=== PATIENT | male | born 1945 | race Caucasian/White ===

== ENCOUNTER 2018-07-03 13:55 | Observation (INO) ==
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
[2018-07-03 15:13] LABS: Baso # (Auto) 0.1 th/mm3 (0.0-0.2); Baso % (Auto) 0.6 % (0.0-2.0); Eos # (Auto) 0.1 th/mm3 (0.0-0.4); Eos % (Auto) 0.6 % (0.0-4.0); Hematocrit 41.7 % (39.0-51.0); Lymph # (Auto) 1.2 th/mm3 (1.0-4.8); Lymph % (Auto) 10.6 % (9.0-44.0); Mean Corpuscular Hemoglobin 32.5 pg (27.0-34.0); Mean Platelet Volume 8.4 fL (7.0-11.0); Mono # (Auto) 0.6 th/mm3 (0.0-0.9); Mono % (Auto) 5.1 % (0.0-8.0); Neut # (Auto) 9.6 th/mm3 (1.8-7.7); Neut % (Auto) 83.1 % (16.0-70.0); Platelet Count 208 th/mm3 (150-450); Red Blood Count 4.63 mil/mm3 (4.50-5.90); Red Cell Distribution Width 13.2 % (11.6-17.2); White Blood Count 11.6 th/mm3 (4.0-11.0)
[2018-07-03 15:19] LABS: Mean Corpuscular HGB Conc 36.1 % (32.0-36.0)
[2018-07-03] MEDS ORDERED: QUEtiapine 25 MG Tablet PO ONE (15:19)
[2018-07-03] MEDS ORDERED: OXcarbazepine 150 MG Tablet PO ONE (15:19)
[2018-07-03 15:26] LABS: Alanine Aminotransferase 27 U/L (12-78); Albumin 3.9 g/dL (3.4-5.0); Anion Gap 9 meq/L (5-15); Aspartate Aminotransferase 26 U/L (15-37); Blood Urea Nitrogen 11 mg/dL (7-18); Calcium 8.4 mg/dL (8.5-10.1); Carbon Dioxide 28.5 meq/L (21.0-32.0); Chloride 103 meq/L (98-107); Glomerular Filtration Rate 62 mL/min (>89); Glucose,Random 83 mg/dL (74-106); Magnesium 1.5 mg/dL (1.5-2.5); Sodium 140 meq/L (136-145)
[2018-07-03 15:36] LABS: Alkaline Phosphatase 78 U/L (45-117); Total Protein 7.4 g/dL (6.4-8.2)
[2018-07-03 15:51] LABS: Platelet Estimate Normal (Normal); Platelet Morphology Normal (Normal)
--- NOTE | 2018-07-03 16:27 | CT ---
EXAM DATE: 07/03/2018 4:21 PM EST AGE/SEX: 73 years / Male INDICATIONS: Altered mental status. CLINICAL DATA: This is the patient's initial encounter. Patient reports that signs and symptoms have been present for 1 day and indicates a pain score of 0/10. MEDICAL/SURGICAL HISTORY: Dementia. Hypertension. Diabetes. None. RADIATION DOSE: 56.35 CTDI (mGy) COMPARISON: No prior exams available for comparison. TECHNIQUE: CT of the head without contrast. Using automated exposure control and adjustment of the mA and/or kV according to patient size, radiation dose was kept as low as reasonably achievable to ob tain optimal diagnostic quality images. DICOM format image data is available electronically for revi ew and comparison. FINDINGS: Cerebrum: The ventricles are mildly prominent for age. There is bilateral cortical atrophy. No evide nce of midline shift, mass lesion, hemorrhage or acute infarction. No extraaxial fluid collections a re seen. Posterior Fossa: The cerebellum and brainstem are intact. The 4th ventricle is midline. The cerebe llopontine angle is unremarkable. Extracranial: The visualized portion of the orbits is intact. Skull: The calvaria is intact. No evidence of skull fracture. CONCLUSION: 1. No focal or acute intracranial hemorrhage. 2. Bilateral cortical atrophy characteristic for patient's age. . Electronically signed by: Hakeem Hanson MD 07/03/2018 4:25 PM EST
[2018-07-03 17:03] LABS: Bilirubin,Urine Negative (Negative); Clarity,Urine Clear (Clear); Color,Urine Yellow (Yellw/Straw); Glucose,Urine (UA) Negative (Negative); Leukocyte Esterase,Urine Negative (Negative); Nitrite,Urine Negative (Negative)
[2018-07-03 17:09] LABS: Amphetamine Screen,Urine Neg (Neg); Barbiturate Screen,Urine Neg (Neg); Cannabinoid Screen,Urine Neg (Neg); Cocaine Screen,Urine Neg (Neg)
[2018-07-03 17:15] LABS: Opiate Screen,Urine Neg (Neg)
[2018-07-04] MEDS ORDERED: Lisinopril 5 MG Tablet PO ONE (00:37)
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
[2018-07-04] MEDS ORDERED: QUEtiapine 25 MG Tablet PO ONE (17:43)
[2018-07-04] MEDS ORDERED: Lisinopril 10 MG Tablet PO ONE (17:43)
[2018-07-04] MEDS ORDERED: Acetaminophen 325 MG Tablet PO PRN (18:00)
[2018-07-04] MEDS ORDERED: Dextrose 50% in Water 50 ML Vial IV.PUSH PRN (18:02)
[2018-07-04] MEDS ORDERED: Haloperidol Inj 5 MG/ML Ampul IV.PUSH ONE (18:14)
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
[2018-07-04 22:09] VITALS: RESP 20
[2018-07-04] MEDS: OXcarbazepine 150 MG Tablet PO SCH (23:55)
[2018-07-04] MEDS: Insulin NovoLOG Aspart Correctional Sugar Inj SQ SCH (23:57)
[2018-07-04] MEDS: hydrALAZINE 25 MG Tablet PO SCH (23:59)
[2018-07-05 07:31] VITALS: O2SAT 95
[2018-07-05 07:42] LABS: Baso % (Auto) 0.6 % (0.0-2.0); Eos # (Auto) 0.2 th/mm3 (0.0-0.4); Eos % (Auto) 3.1 % (0.0-4.0); Hematocrit 41.3 % (39.0-51.0); Hemoglobin 14.2 gm/dL (13.0-17.0); Lymph # (Auto) 1.3 th/mm3 (1.0-4.8); Lymph % (Auto) 17.7 % (9.0-44.0); Mean Corpuscular HGB Conc 34.4 % (32.0-36.0); Mean Corpuscular Hemoglobin 31.5 pg (27.0-34.0); Mean Corpuscular Volume 91.7 fL (80.0-100.0); Mean Platelet Volume 8.8 fL (7.0-11.0); Mono # (Auto) 0.7 th/mm3 (0.0-0.9); Neut # (Auto) 4.9 th/mm3 (1.8-7.7); Neut % (Auto) 68.6 % (16.0-70.0); Platelet Count 195 th/mm3 (150-450); Red Blood Count 4.51 mil/mm3 (4.50-5.90); Red Cell Distribution Width 13.7 % (11.6-17.2); White Blood Count 7.2 th/mm3 (4.0-11.0)
[2018-07-05 08:00] LABS: Albumin 3.4 g/dL (3.4-5.0); Anion Gap 9 meq/L (5-15); Blood Urea Nitrogen 18 mg/dL (7-18); Calcium 8.6 mg/dL (8.5-10.1); Carbon Dioxide 26.2 meq/L (21.0-32.0); Chloride 104 meq/L (98-107); Glomerular Filtration Rate 56 mL/min (>89); Glucose,Random 93 mg/dL (74-106); Potassium 3.5 meq/L (3.5-5.1); Sodium 139 meq/L (136-145)
[2018-07-05 08:01] LABS: Alanine Aminotransferase 22 U/L (12-78); Aspartate Aminotransferase 30 U/L (15-37)
[2018-07-05 08:03] LABS: Alkaline Phosphatase 64 U/L (45-117); Total Protein 6.7 g/dL (6.4-8.2)
[2018-07-05] MEDS ORDERED: QUEtiapine 25 MG Tablet PO SCH (09:00)
[2018-07-05] MEDS ORDERED: Lisinopril 5 MG Tablet PO SCH (09:00)
[2018-07-05] MEDS: Insulin NovoLOG Aspart Correctional Sugar Inj SQ SCH ×2 (09:05→12:53)
[2018-07-05] MEDS: hydrALAZINE 25 MG Tablet PO SCH ×2 (09:10→12:53)
[2018-07-05] MEDS: OXcarbazepine 150 MG Tablet PO SCH (09:16)
[2018-07-05] MEDS ORDERED: Sod Chloride 0.9% Inj 1,000 ML IV.SIG SCH (10:00)
--- NOTE | 2018-07-05 11:01 | P.PN ---
Subjective Interval history: Nursing denies any acute changes overnight. Patient was compliant with taking his medications and eating well. I go into the room the patient is asking me to get this "dog away from me." I asked him where the dog is he says it was just here. Sitter is present in the room. When asked him where he he is in terms of orientation, he says he does not know when he asks me where we are. Physical Exam Vital signs: Vital Signs 07/04/18 14:32 07/04/18 19:19 07/04/18 22:00 Temperature Pulse Rate 78 90 Respiratory Rate 18 14 14 Blood Pressure 197/100 H 154/83 H Pulse Oximetry 98 07/04/18 22:07 07/05/18 00:00 07/05/18 04:00 Temperature 97.5 F L 97.7 F 97.5 F L Pulse Rate 78 62 65 Respiratory Rate 20 20 20 Blood Pressure 133/63 144/53 H 118/58 L Pulse Oximetry 95 94 L 94 L 07/05/18 07:29 Temperature 98.5 F Pulse Rate 63 Respiratory Rate 20 Blood Pressure 124/60 Pulse Oximetry 95 Narrative: Clear lungs bilaterally, unlabored breathing heart sounds regular rhythm, no murmurs Awake, alert, slightly pressured speech Abdomen soft, nontender, nondistended Awake and alert, very disoriented Is very tangential in his thoughts Results - Labs CBC & Chem 7: 07/05/18 06:11 07/05/18 06:11 Laboratory Results - last 24 hr 07/04/18 07/05/18 07/05/18 23:17 06:11 06:11 WBC 7.2 RBC 4.51 Hgb 14.2 Hct 41.3 MCV 91.7 MCH 31.5 MCHC 34.4 RDW 13.7 Plt Count 195 MPV 8.8 Neut % (Auto) 68.6 Lymph % (Auto) 17.7 Mccreary % (Auto) 10.0 H Eos % (Auto) 3.1 Baso % (Auto) 0.6 Neut # (Auto) 4.9 Lymph # (Auto) 1.3 Mccreary # (Auto) 0.7 Eos # (Auto) 0.2 Baso # (Auto) 0.0 WBC Differential . Differential Comment Auto diff final Sodium 139 Potassium 3.5 Chloride 104 Carbon Dioxide 26.2 Anion Gap 9 BUN 18 Creatinine 1.26 Estimated GFR 56 L POC Glucose 207 H Random Glucose 93 Calcium 8.6 Total Bilirubin 0.7 AST 30 ALT 22 Alkaline Phosphatase 64 Total Protein 6.7 D Albumin 3.4 Vitamin B12 07/05/18 07/05/18 06:11 07:35 WBC RBC Hgb Hct MCV MCH MCHC RDW Plt Count MPV Neut % (Auto) Lymph % (Auto) Mccreary % (Auto) Eos % (Auto) Baso % (Auto) Neut # (Auto) Lymph # (Auto) Mccreary # (Auto) Eos # (Auto) Baso # (Auto) WBC Differential Differential Comment Sodium Potassium Chloride Carbon Dioxide Anion Gap BUN Creatinine Estimated GFR POC Glucose 110 Random Glucose Calcium Total Bilirubin AST ALT Alkaline Phosphatase Total Protein Albumin Vitamin B12 350 Assessment and Plan - Plan 73-year-old man with Dementia with aggressive behavior Acute mood disorder Head CT noted and reviewed without any abnormality UA unremarkable Blood work so far unremarkable, TSH within normal limits B12 pending, is actively hallucinating, will discharge to inpatient psychiatry Diabetes type 2 Hold oral anti-hyperglycemic agents nsulin sliding scale with fingerstick blood glucose monitoring Benign labile hypertension Will double lisinopril dose Acute kidney injury Mild in extent, give one-time IV bolus, recheck BMP in a.m. or follow-up outpatient closely if cleared for discharge by psychiatry Dementia home medications Patient is medically stable for dc to inpatient psychiatric facility. Just needs to have his BMP repeated in 1-2 days.
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
[2018-07-05 12:03] VITALS: PULSE 82; TEMP 98.4
[2018-07-05 13:21] VITALS: BP 134/60
== END 2018-07-05 13:42 ==
LOC: NEDA 13:55 → NEPE 13:55 → NEPGCP 07-04 22:04
PROVIDERS: ADMIT Hospitalist; ATTEND Hospitalist
DX: Z79.899 Other long term (current) drug therapy; F03.91 Unspecified dementia, unspecified severity, with behavioral disturbance; R45.6 Violent behavior; E11.9 Type 2 diabetes mellitus without complications; R41.0 Disorientation, unspecified; E78.5 Hyperlipidemia, unspecified; Z79.84 Long term (current) use of oral hypoglycemic drugs; I10 Essential (primary) hypertension

== ENCOUNTER 2018-07-05 13:17 | Inpatient (IN) ==
[2018-07-05] MEDS ORDERED: Bisacodyl 10 MG Supp RECTAL PRN (14:13)
[2018-07-05] MEDS ORDERED: Aluminum/Magnesium/Simethacone Susp 30 ML UDC PO PRN (14:13)
[2018-07-05] MEDS ORDERED: Non-Formulary Drug (Linagliptin [Tradjenta] 5 MG) PO SCH (14:15)
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
[2018-07-05] MEDS ORDERED: Dextrose 50% in Water 50 ML Vial IV.PUSH PRN (15:33)
[2018-07-05] MEDS: Insulin NovoLOG Aspart Correctional Sugar Inj SQ SCH ×2 (16:13→20:43)
--- NOTE | 2018-07-05 16:35 | P.CON ---
History of Present Illness Primary Care Provider: UNKNOWN Chief Complaint: High blood pressure History of Present Illness: The patient is a very pleasantly confused 73-year-old male with past medical history of hypertension, diabetes, dementia. Patient was noted with worsening dementia with aggressive behavior and is admitted to inpatient psych unit for further evaluation and management. The patient is in the chair at this time and he appears in not acute distress, he is calm at this time and pleasantly confused. Says he wants to go home he says he lives in [place]. He denies having chest pain or shortness of breath. No nausea vomiting or diarrhea constipation. He is ambulating without any problems. No lightheadedness. No palpitations. No abdominal pain. No urinary complaints. Patient states he wants to go home. Review of Systems All other systems reviewed negative except as stated in HPI, other (Limited due to patient mental status/psychiatric illness) PMFSH - History History Provided By: Patient, Family Member, Medical Record - Medical History Medical History: Medical History (Last Reviewed 07/04/18 @ 14:28 by ADENIKE Haynes) Dementia Diabetes Hypertension - Surgical History Surgical History: Surgical History (Last Reviewed 07/04/18 @ 14:28 by ADENIKE Haynes) History of carpal tunnel release - Family History Family History: Family History (Last Updated 07/04/18 @ 18:09 by Balaji Lindsay MD) Other Diabetes - Tobacco History Second Hand Smoke Exposure: No Tobacco Use In Past 30 Days: No Smoking Status: Cognitive impairment Tobacco Type: Cigarettes - Alcohol History How Often Do You Have a Drink Containing Alcohol: Unable to Obtain - Substance Use History Substance History: No History of Abuse, Unable to Obtain Medications and Allergies Active Medications: Active Medications Al Hydrox/Mg Hydrox/Simethicone (Mag-Al Plus Susp Liq) 30 ml PO Q6H PRN PRN Reason: DYSPEPSIA Al Hydroxide/Mg Hydroxide (Milk Of Magnesia Liq) 30 ml PO Q12H PRN PRN Reason: Mild Constipation Bisacodyl (Dulcolax Supp) 10 mg RECTAL DAILY PRN PRN Reason: SEVERE CONSITIPATION Dextrose (D50w Vial) 50 ml IV.PUSH UNSCH PRN PRN Reason: PER HYPOGLYCEMIA PROTOCOL Donepezil HCl (Aricept) 10 mg PO DAILY [facility] Last Admin: 07/05/18 14:56 Dose: Not Given Glipizide (Glucotrol) 2.5 mg PO DAILY [facility] Glucagon (Glucagon Inj) 1 mg OTHER PRN PRN PRN Reason: for Hypoglycemia Protocol Hydralazine HCl (Apresoline) 10 mg PO QID PRN PRN Reason: BP> 160/90 Insulin Aspart (Novolog Insulin Correctional Sugar Inj) 0 unit SQ ACHS [facility]; Protocol Last Admin: 07/05/18 16:13 Dose: 2 unit Lactulose (Lactulose Liq) 30 ml PO DAILY PRN PRN Reason: SEVERE CONSITIPATION Lisinopril (Prinivil) 10 mg PO DAILY [facility] Memantine (Namenda) 10 mg PO BID [facility] Miscellaneous (Pill Splitter) 1 each OTHER ONCE ONE Stop: 07/06/18 08:01 Non-Formulary Medication (Linagliptin [Tradjenta]) 5 mg PO QAM [facility] Oxcarbazepine (Trileptal) 150 mg PO BID [facility] Pravastatin Sodium (Pravachol) 20 mg PO DAILY [facility] Quetiapine Fumarate (Seroquel) 25 mg PO BID [facility] Senna/Docusate Sodium (Sara-Colace) 1 tab PO BID [facility] Sennosides (Senokot) 17.2 mg PO Q12H PRN PRN Reason: Moderate Constipation Allergies Allergy/AdvReac Type Severity Reaction Status Date / Time No Known Allergies Allergy Verified 07/03/18 14:41 Home Medications Medication Instructions Recorded Confirmed Type donepezil 10 mg PO DAILY 07/03/18 07/05/18 History glipizide 2.5 mg PO DAILY 07/03/18 07/05/18 History linagliptin [Tradjenta] 5 mg PO QAM 07/03/18 07/05/18 History lovastatin 20 mg PO DAILY 07/03/18 07/05/18 History memantine 10 mg PO BID 07/03/18 07/05/18 History oxcarbazepine 150 mg PO BID 07/03/18 07/05/18 History quetiapine [Seroquel] 25 mg PO BID 07/03/18 07/05/18 History Physical Exam Vital signs: Vital Signs 07/05/18 14:09 Temperature 97.6 F Pulse Rate 77 Respiratory Rate 20 Blood Pressure 146/67 H Pulse Oximetry 98 Intake & Output 07/04/18 07/05/18 07/05/18 18:59 06:59 18:59 Weight 83.574 kg Other: Weight On Admission 83.574 kg Narrative: GENERAL: Pleasantly confused 73-year-old male, obese, appears in not acute distress at this time, able to ambulate without any problems. SKIN: Warm and dry. HEAD: Atraumatic. Normocephalic. EYES: Pupils equal and round. No scleral icterus. No injection or drainage. ENT: No nasal bleeding or discharge. Mucous membranes pink and moist. NECK: Trachea midline. No JVD. CARDIOVASCULAR: Regular rate and rhythm. RESPIRATORY: No accessory muscle use. Clear to auscultation. Breath sounds equal bilaterally. GASTROINTESTINAL: Abdomen soft, obese, non-tender, nondistended. MUSCULOSKELETAL: Extremities without clubbing, cyanosis, or edema. No obvious deformities. NEUROLOGICAL: Awake and alert. No obvious cranial nerve deficits. Motor grossly within normal limits. Ambulates without any problems follow commands. Normal speech. PSYCHIATRIC: Insight and judgment very poor. Assessment and Plan - Plan 73-year-old male with past medical history of hypertension, diabetes, dementia Worsening dementia with aggressive behavior. Continue management per psychiatry team Hypertension. Noted labile due to patient aggressiveness. Continue home medications. Blood pressure is improving. Add hydralazine 10 mg p.o. as needed if blood pressure more than 160/90 Diabetes mellitus. Continue home medications. Monitor blood sugar with Accu- Cheks. DVT prophylaxis ambulation Thank you for this consultation. Hospitalist will sign off this patient appear medically stable. Reconsult as needed
[2018-07-05] MEDS: QUEtiapine 25 MG Tablet PO SCH (20:43)
[2018-07-05] MEDS: OXcarbazepine 150 MG Tablet PO SCH (20:43)
[2018-07-05] MEDS ORDERED: Senna/Docusate Sodium 8.6/50 MG Tablet PO SCH (21:00)
[2018-07-06 07:15] LABS: Calcium 8.8 mg/dL (8.5-10.1); Carbon Dioxide 28.5 meq/L (21.0-32.0); Potassium 3.6 meq/L (3.5-5.1)
[2018-07-06 07:18] LABS: Chol/HDL Ratio 2.46 Ratio; HDL Cholesterol 66.9 mg/dL (40.0-60.0)
[2018-07-06] MEDS ORDERED: Aluminum/Magnesium/Simethacone Susp 30 ML UDC PO PRN (07:51)
--- NOTE | 2018-07-06 08:03 | P.CONPSY ---
Provisional Diagnosis Admission Date: July 05, 2018 13:45 [place] I.: Unspecified psychosis History of Present Illness Service: Psychiatry Consult date: 07/06/18 Requesting Physician: Santy Skelton Reason for Consult: Second opinion petition supporting Williamson act Primary Care Provider: UNKNOWN Chief Complaint: High blood pressure History of Present Illness: Patient is a 73-year-old white male admitted to Dr. Krueger service under the Williamson act his H&P reviewed and agreed with I have also completed the initial psychiatric admission orders template and reviewed the med reconciliation. Dr. Krueger has done first opinion petition supporting Williamson act. I agree patient meets criteria for involuntary psychiatric hospitalization the Williamson act thus I will cosign second opinion petition supporting Williamson act. Patient was seen by me in the cortes with floor staff he is not alert significantly diffusely confused in all 4 spheres stockily built white male appears his stated age I also agree with Dr. Krueger is requesting a healthcare surrogate and guardian advocate. I have also ordered hospitalist consultation with this gentleman. Review of Systems unobtainable due to mental condition PMFSH - History History Provided By: Patient, Medical Record - Medical History Medical History: Medical History (Last Reviewed 07/06/18 @ 08:00 by Vipin Hernandez MD) Dementia Diabetes Hypertension - Surgical History Surgical History: Surgical History (Last Reviewed 07/06/18 @ 08:00 by Vipin Hernandez MD) History of carpal tunnel release - Family History Family History: Family History (Last Reviewed 07/06/18 @ 08:00 by Vipin Hernandez MD) Other Diabetes - Social History I have reviewed the patient's Social History: Yes - Tobacco History Second Hand Smoke Exposure: No Tobacco Use In Past 30 Days: No Smoking Status: Cognitive impairment Tobacco Type: Cigarettes - Alcohol History How Often Do You Have a Drink Containing Alcohol: Unable to Obtain - Substance Use History Substance History: No History of Abuse, Unable to Obtain Medications and Allergies Active Medications: Active Medications Al Hydrox/Mg Hydrox/Simethicone (Mag-Al Plus Susp Liq) 30 ml PO Q6H PRN PRN Reason: DYSPEPSIA Al Hydroxide/Mg Hydroxide (Milk Of Magnesia Liq) 30 ml PO Q12H PRN PRN Reason: Mild Constipation Dextrose (D50w Vial) 50 ml IV.PUSH UNSCH PRN PRN Reason: PER HYPOGLYCEMIA PROTOCOL Diphenhydramine HCl (Benadryl) 50 mg PO HS PRN PRN Reason: INSOMNIA Donepezil HCl (Aricept) 10 mg PO DAILY [facility] Last Admin: 07/05/18 14:56 Dose: Not Given Glipizide (Glucotrol) 2.5 mg PO DAILY [facility] Glucagon (Glucagon Inj) 1 mg OTHER PRN PRN PRN Reason: for Hypoglycemia Protocol Hydralazine HCl (Apresoline) 10 mg PO QID PRN PRN Reason: BP> 160/90 Hydroxyzine HCl (Atarax) 50 mg PO Q6H PRN PRN Reason: ANXIETY Insulin Aspart (Novolog Insulin Correctional Sugar Inj) 0 unit SQ ACHS [facility]; Protocol Last Admin: 07/05/18 20:43 Dose: 2 unit Lisinopril (Prinivil) 10 mg PO DAILY [facility] Memantine (Namenda) 10 mg PO BID [facility] Last Admin: 07/05/18 20:43 Dose: 10 mg Miscellaneous (Pill Splitter) 1 each OTHER ONCE ONE Stop: 07/06/18 08:01 Oxcarbazepine (Trileptal) 150 mg PO BID [facility] Last Admin: 07/05/18 20:43 Dose: 150 mg Patient Own Med- Linagliptin ( Tradjenta) 5mg 0 each PO DAILY [facility] Pravastatin Sodium (Pravachol) 20 mg PO DAILY [facility] Quetiapine Fumarate (Seroquel) 25 mg PO BID [facility] Last Admin: 07/05/18 20:43 Dose: 25 mg Allergies Allergy/AdvReac Type Severity Reaction Status Date / Time No Known Allergies Allergy Verified 07/03/18 14:41 Home Medications Medication Instructions Recorded Confirmed Type donepezil 10 mg PO DAILY 07/03/18 07/05/18 History glipizide 2.5 mg PO DAILY 07/03/18 07/05/18 History linagliptin [Tradjenta] 5 mg PO QAM 07/03/18 07/05/18 History lovastatin 20 mg PO DAILY 07/03/18 07/05/18 History memantine 10 mg PO BID 07/03/18 07/05/18 History oxcarbazepine 150 mg PO BID 07/03/18 07/05/18 History quetiapine [Seroquel] 25 mg PO BID 07/03/18 07/05/18 History Exam Vital signs: Vital Signs 07/05/18 14:09 07/05/18 18:33 07/06/18 05:59 Temperature 97.6 F 98.4 F 98.0 F Pulse Rate 77 90 54 L Respiratory Rate 20 20 18 Blood Pressure 146/67 H 151/75 H 155/76 H Pulse Oximetry 98 96 95 Intake & Output 07/05/18 07/06/18 07/06/18 18:59 06:59 18:59 Intake Total 0 / 0 Output Total Balance - Weight 83.574 kg Intake: Oral 0 / 0 Output: Urine Other: Weight On Admission 83.574 kg Narrative: Patient walking in the cortes in no acute distress, he is in no respiratory distress, no complaints of chest pain or abdominal pain. Patient moving all 4 extremities without difficulty Mental Status Examination Consciousness: Alert Orientation: Person (Vaguely) Motor Activity: Normal gait Speech: Unremarkable, Other (Markedly disorganized) Language: Adequate Fund of Knowledge: Inadequate Attention and Concentration: Other (Poor) Memory: Impaired Mood: Other (Euthymic to somewhat restricted mildly irritable) Affect: Other (Good range and intensity) Thought Process & Associations: Disorganized Thought Content: Other (Markedly disorganized) Hallucination Type: None Delusion Type: None Suicidal Ideation: No Suicidal Plan: No Suicidal Intention: No Homicidal Ideation: No Homicidal Plan: No Homicidal Intention: No Insight: Poor Judgment: Poor Assessment and Plan - Assessment (1) Dementia Code(s): F03.90 - Unspecified dementia without behavioral disturbance Status: Acute - Plan Plan: Patient does meet criteria for involuntary psychiatric hospitalization thus I will cosign second opinion petition supporting Teri mustafa. Patient remains quite confused disoriented and demented Justification for Continued Inpatient Stay: At this point patient with decompensated placed in a lower level of care Discharge Planning: To be determined (1) Dementia Qualifiers: Dementia type: Alzheimer's disease Alzheimer's disease onset: late-onset Dementia behavioral disturbance: with behavioral disturbance Qualified Code(s) : G30.1 - Alzheimer's disease with late onset; F02.81 - Dementia in other diseases classified elsewhere with behavioral disturbance
[2018-07-06] MEDS: Insulin NovoLOG Aspart Correctional Sugar Inj SQ SCH ×3 (08:31→17:20)
[2018-07-06] MEDS: glipiZIDE 5 MG Tablet PO SCH (08:32)
[2018-07-06] MEDS: OXcarbazepine 150 MG Tablet PO SCH ×2 (08:36→20:43)
[2018-07-06] MEDS: QUEtiapine 25 MG Tablet PO SCH ×2 (08:36→20:43)
[2018-07-06] MEDS: Lisinopril 10 MG Tablet PO SCH (08:36)
[2018-07-06] MEDS ORDERED: LINAGLIPTIN 5 MG PO SCH (09:00)
[2018-07-07] MEDS: Insulin NovoLOG Aspart Correctional Sugar Inj SQ SCH ×5 (06:23→20:43)
--- NOTE | 2018-07-07 08:45 | P.PNPSY ---
Subjective Remarks: Reviewed electronic record and discussed with nursing staff. Rounded with LINA Garcia. Patient in day room eating breakfast. He is pleasant and confused. Somewhat paranoid that someone is stealing his money. He is not sure if this facility is a hospital. He is complaint. No behavioral concerns. He is complementary of the staff and the food. Review of Systems All other systems reviewed negative except as stated in HPI Mental Status Examination Consciousness: Alert Orientation: Person (Vaguely) Motor Activity: Normal gait Speech: Unremarkable, Other (Markedly disorganized) Language: Adequate Fund of Knowledge: Inadequate Attention and Concentration: Other (Poor) Memory: Impaired Mood: Other (Euthymic to somewhat restricted mildly irritable) Affect: Other (Good range and intensity) Thought Process & Associations: Disorganized Thought Content: Other (Markedly disorganized) Hallucination Type: None Delusion Type: None Suicidal Ideation: No Suicidal Plan: No Suicidal Intention: No Homicidal Ideation: No Homicidal Plan: No Homicidal Intention: No Insight: Poor Judgment: Poor Assessment and Plan - Assessment (1) Dementia Code(s): F03.90 - Unspecified dementia without behavioral disturbance Status: Acute - Plan Plan: Continue current treatment plan. Justification for Continued Inpatient Stay: Moving patient to a less restrictive environment may result in his decompensation. (1) Dementia Qualifiers: Dementia type: Alzheimer's disease Alzheimer's disease onset: late-onset Dementia behavioral disturbance: with behavioral disturbance Qualified Code(s) : G30.1 - Alzheimer's disease with late onset; F02.81 - Dementia in other diseases classified elsewhere with behavioral disturbance
[2018-07-07] MEDS: Lisinopril 10 MG Tablet PO SCH (08:47)
[2018-07-07] MEDS: glipiZIDE 5 MG Tablet PO SCH (08:47)
[2018-07-07] MEDS: OXcarbazepine 150 MG Tablet PO SCH ×2 (08:47→20:29)
[2018-07-07] MEDS: QUEtiapine 25 MG Tablet PO SCH ×2 (08:47→20:29)
[2018-07-07 09:00] LABS: Calcium 8.8 mg/dL (8.5-10.1); Carbon Dioxide 22.6 meq/L (21.0-32.0)
[2018-07-07 09:04] LABS: Chol/HDL Ratio 2.54 Ratio; HDL Cholesterol 65.2 mg/dL (40.0-60.0)
[2018-07-07 11:11] LABS: Hemoglobin A1c 6.4 % (4.3-6.0)
[2018-07-07] MEDS: hydrALAZINE 10 MG Tablet PO PRN (11:17)
[2018-07-07 11:55] LABS: Hemoglobin A1c 6.3 % (4.3-6.0)
[2018-07-08] MEDS: hydrALAZINE 10 MG Tablet PO PRN (05:24)
[2018-07-08] MEDS: Lisinopril 10 MG Tablet PO SCH (09:01)
[2018-07-08] MEDS: OXcarbazepine 150 MG Tablet PO SCH ×2 (09:01→20:11)
[2018-07-08] MEDS: glipiZIDE 5 MG Tablet PO SCH (09:01)
[2018-07-08] MEDS: Insulin NovoLOG Aspart Correctional Sugar Inj SQ SCH ×4 (09:02→20:16)
[2018-07-08] MEDS: QUEtiapine 25 MG Tablet PO SCH ×2 (09:03→20:11)
--- NOTE | 2018-07-08 10:59 | P.PNPSY ---
Subjective Remarks: Patient seen in day room with nurse Lisa, chart reviewed, patient compliant medication. Patient is alert pleasant and somewhat vigilant with me continues markedly diffusely confused and disorganized. Though he has had no significant behavioral problems today Review of Systems All other systems reviewed negative except as stated in HPI Mental Status Examination Appearance: Appropriate Consciousness: Alert Orientation: Person (Vaguely) Motor Activity: Normal gait Speech: Unremarkable, Other (Markedly disorganized) Language: Adequate Fund of Knowledge: Inadequate Attention and Concentration: Other (Poor) Memory: Impaired Mood: Other (Euthymic to somewhat restricted mildly irritable) Affect: Other (Good range and intensity) Thought Process & Associations: Disorganized Thought Content: Other (Markedly disorganized) Hallucination Type: None Delusion Type: None Suicidal Ideation: No Suicidal Plan: No Suicidal Intention: No Homicidal Ideation: No Homicidal Plan: No Homicidal Intention: No Insight: Poor Judgment: Poor Assessment and Plan - Assessment (1) Dementia Code(s): F03.90 - Unspecified dementia without behavioral disturbance Status: Acute - Plan Plan: Patient remains diffusely confused and disoriented, at times somewhat vigilant but overall no behavioral problems today, compliant medication Justification for Continued Inpatient Stay: At this time patient would decompensated placed in a lower level of care Discharge Planning: To be determined (1) Dementia Qualifiers: Dementia type: Alzheimer's disease Alzheimer's disease onset: late-onset Dementia behavioral disturbance: with behavioral disturbance Qualified Code(s) : G30.1 - Alzheimer's disease with late onset; F02.81 - Dementia in other diseases classified elsewhere with behavioral disturbance
[2018-07-09] MEDS: hydrALAZINE 10 MG Tablet PO PRN (05:59)
[2018-07-09] MEDS: Insulin NovoLOG Aspart Correctional Sugar Inj SQ SCH ×4 (07:46→20:15)
[2018-07-09] MEDS: OXcarbazepine 150 MG Tablet PO SCH ×2 (09:16→20:15)
[2018-07-09] MEDS: Lisinopril 10 MG Tablet PO SCH (09:16)
[2018-07-09] MEDS: glipiZIDE 5 MG Tablet PO SCH (09:16)
[2018-07-09] MEDS: QUEtiapine 25 MG Tablet PO SCH ×2 (09:17→20:16)
--- NOTE | 2018-07-09 11:43 | P.TTN ---
- Patient Problems Problems: 1. Discharge planning 2. Medication compliance 3. Knowledge deficit 4. Lack of coping skills - Progress Toward Goals Provider Present: Dr. Jeffery Hernandez Provider Input: 07/08/18 Pt was observed diffusely confused and disorganized. No beh concerns. Nurse Input: 07/08/18 Per LINA Gonzalez patient compliant medication. Pt has had no significant behavioral problems today. Psychiatric Therapist Input: 07/08/18: Pts dc pending to further baseline and stabilization. Group Spec/RT/OT/SOSA Present: SHEILA Talavera Occupational Therapist Input: 07/08/18: Pt is new no group attendance at this time. - Documentation Teaching Recipient: Patient
--- NOTE | 2018-07-09 12:07 | P.PNPSY ---
Subjective Remarks: Patient seen in day room having lunch with daughter. Patient continues diffusely confused disoriented though no behavior problems at this time. Daughter states he may have found a placement for him in the [facility]. She will let her counselors now. Today daughter states though that she would like to transport her father to the facility when placement has been arranged. I counseled her related to the possible difficulties that could occur with that. She was firm in her desire to transport her father. For now continue treatment Review of Systems All other systems reviewed negative except as stated in HPI Mental Status Examination Appearance: Appropriate Consciousness: Alert Orientation: Person (Vaguely) Motor Activity: Normal gait Speech: Unremarkable, Other (Markedly disorganized) Language: Adequate Fund of Knowledge: Inadequate Attention and Concentration: Other (Poor) Memory: Impaired Mood: Other (Euthymic to somewhat restricted mildly irritable) Affect: Other (Good range and intensity) Thought Process & Associations: Disorganized Thought Content: Other (Markedly disorganized) Hallucination Type: None Delusion Type: None Suicidal Ideation: No Suicidal Plan: No Suicidal Intention: No Homicidal Ideation: No Homicidal Plan: No Homicidal Intention: No Insight: Poor Judgment: Poor Assessment and Plan - Assessment (1) Dementia Code(s): F03.90 - Unspecified dementia without behavioral disturbance Status: Acute - Plan Plan: Patient continues demented confused with the milieu problems at this time. We will continue to work with family to find appropriate placement Justification for Continued Inpatient Stay: At this time patient with decompensated placed in a lower level of care Discharge Planning: To be determined (1) Dementia Qualifiers: Dementia type: Alzheimer's disease Alzheimer's disease onset: late-onset Dementia behavioral disturbance: with behavioral disturbance Qualified Code(s) : G30.1 - Alzheimer's disease with late onset; F02.81 - Dementia in other diseases classified elsewhere with behavioral disturbance
[2018-07-09] MEDS ORDERED: Haloperidol Inj 5 MG/ML Ampul ONE (15:33)
[2018-07-09] MEDS ORDERED: Haloperidol Inj 5 MG/ML Ampul IM ONE (16:00)
[2018-07-10] MEDS: Insulin NovoLOG Aspart Correctional Sugar Inj SQ SCH ×4 (08:03→20:56)
[2018-07-10] MEDS: Lisinopril 10 MG Tablet PO SCH (08:55)
[2018-07-10] MEDS: OXcarbazepine 150 MG Tablet PO SCH ×2 (08:55→20:55)
[2018-07-10] MEDS: glipiZIDE 5 MG Tablet PO SCH (08:55)
[2018-07-10] MEDS: QUEtiapine 25 MG Tablet PO SCH ×2 (08:57→18:13)
--- NOTE | 2018-07-10 09:39 | P.PNPSY ---
Subjective Remarks: Patient is seen in day room with nurse less, chart reviewed, patient showed some increased behaviors around 330 yesterday afternoon necessitating ETO of Haldol and Ativan and Benadryl which did help calm him. This morning patient is sitting quietly in the day room he is calm diffusely confused no behavioral problems but there is a underlying feeling of the vein vigilance and irritability. We will adjust dose of Seroquel to 10 AM and 6 PM. Review of Systems All other systems reviewed negative except as stated in HPI Mental Status Examination Appearance: Appropriate Consciousness: Alert Orientation: Person (Vaguely) Motor Activity: Normal gait Speech: Unremarkable, Other (Markedly disorganized) Language: Other (Today markedly disorganized) Fund of Knowledge: Inadequate Attention and Concentration: Other (Poor) Memory: Impaired Mood: Other (Euthymic to somewhat restricted mildly irritable) Affect: Other (Good range and intensity) Thought Process & Associations: Disorganized Thought Content: Other (Markedly disorganized) Hallucination Type: None Delusion Type: None, Other (Somewhat vigilant) Suicidal Ideation: No Suicidal Plan: No Suicidal Intention: No Homicidal Ideation: No Homicidal Plan: No Homicidal Intention: No Insight: Poor Judgment: Poor Assessment and Plan - Assessment (1) Dementia Code(s): F03.90 - Unspecified dementia without behavioral disturbance Status: Acute - Plan Plan: Patient remains significantly confused demented. See medication adjustment above Justification for Continued Inpatient Stay: At this time patient with decompensated placed in a lower level of care Discharge Planning: To be determined in cooperation with family (1) Dementia Qualifiers: Dementia type: Alzheimer's disease Alzheimer's disease onset: late-onset Dementia behavioral disturbance: with behavioral disturbance Qualified Code(s) : G30.1 - Alzheimer's disease with late onset; F02.81 - Dementia in other diseases classified elsewhere with behavioral disturbance
--- NOTE | 2018-07-10 11:20 | P.TTN ---
- Patient Problems Problems: 1. Discharge planning 2. Medication compliance 3. Knowledge deficit 4. Lack of coping skills - Progress Toward Goals Provider Present: Dr. Jeffery Hernandez Provider Input: 07/10/18: Per , yesterday afternoon had ETO of Haldol and Ativan and Benadryl which did help calm him. No behavioral concerns this morning. Medication might need adjustment. 07/08/18 Pt was observed diffusely confused and disorganized. No beh concerns. Nurse Input: 07/10/18 Per RN Less reports pt had a bad day yesterday but today he is doing a bit better. Pt is med compliant and no beh issues as off today. 07/08/18 Per RN Lisa patient compliant medication. Pt has had no significant behavioral problems today. Psychiatric Counselors Present: Trent Mooney [facility] Psychiatric Therapist Input: 07/10/18: Marimary: D/c plan is been worked currently with his family and is pending further baseline achievement. 07/08/18 : Pts dc pending to further baseline and stabilization. Group Spec/RT/OT/SOSA Present: Lucie Maldonado, JOSELINE, SHEILA Talavera Occupational Therapist Input: 07/10/18: Per Lucie, pt does not attend groups despite encouragement. 07/08/18: Pt is new no group attendance at this time. - Documentation Teaching Recipient: Patient
[2018-07-11] MEDS: OXcarbazepine 150 MG Tablet PO SCH ×2 (08:08→22:10)
[2018-07-11] MEDS: glipiZIDE 5 MG Tablet PO SCH (08:09)
[2018-07-11] MEDS: Lisinopril 10 MG Tablet PO SCH (08:11)
--- NOTE | 2018-07-11 09:37 | P.PNPSY ---
Subjective Remarks: Patient seen and [address] with patient's daughter and daughter's , patient's case continue times 1 week by Domingo Almaguer. It appears that it is found possible placement for her dad on Sunday 07/15 at [facility]. Patient today remains confused disoriented though no significant behavioral problems, compliant medications. For now continue treatment Review of Systems All other systems reviewed negative except as stated in HPI Mental Status Examination Appearance: Appropriate Consciousness: Alert Orientation: Person (Vaguely) Motor Activity: Normal gait Speech: Unremarkable, Other (Markedly disorganized) Language: Other (Today markedly disorganized) Fund of Knowledge: Inadequate Attention and Concentration: Other (Poor) Memory: Impaired Mood: Other (Euthymic to somewhat restricted mildly irritable) Affect: Other (Good range and intensity) Thought Process & Associations: Disorganized Thought Content: Other (Markedly disorganized) Hallucination Type: None Delusion Type: None, Other (Somewhat vigilant) Suicidal Ideation: No Suicidal Plan: No Suicidal Intention: No Homicidal Ideation: No Homicidal Plan: No Homicidal Intention: No Insight: Poor Judgment: Poor Assessment and Plan - Assessment (1) Dementia Code(s): F03.90 - Unspecified dementia without behavioral disturbance Status: Acute - Plan Plan: Patient remains confused and demented than no behavioral problem compliant medication. Patient case continued and [facility] times 1 week. Consider possible discharge Sunday 07/15 to [facility] Justification for Continued Inpatient Stay: At this time patient with decompensated placed in a lower level of care Discharge Planning: Possible discharge Sunday 07/15 (1) Dementia Qualifiers: Dementia type: Alzheimer's disease Alzheimer's disease onset: late-onset Dementia behavioral disturbance: with behavioral disturbance Qualified Code(s) : G30.1 - Alzheimer's disease with late onset; F02.81 - Dementia in other diseases classified elsewhere with behavioral disturbance
[2018-07-11] MEDS: QUEtiapine 25 MG Tablet PO SCH ×2 (12:18→17:05)
[2018-07-11] MEDS: Insulin NovoLOG Aspart Correctional Sugar Inj SQ SCH ×3 (12:19→22:09)
[2018-07-12] MEDS: glipiZIDE 5 MG Tablet PO SCH (08:09)
[2018-07-12] MEDS: OXcarbazepine 150 MG Tablet PO SCH ×2 (08:10→20:52)
[2018-07-12] MEDS: Lisinopril 10 MG Tablet PO SCH (08:10)
[2018-07-12] MEDS: Insulin NovoLOG Aspart Correctional Sugar Inj SQ SCH ×4 (08:11→20:52)
--- NOTE | 2018-07-12 10:33 | P.PNPSY ---
Subjective Remarks: Patient seen in day room with floor staff, chart reviewed, patient compliant medication. Patient continues diffusely confused disoriented though no significant behavioral problems today. For now continue treatment. There is anticipated discharge to [facility] on Sunday 07/15 Review of Systems All other systems reviewed negative except as stated in HPI Mental Status Examination Appearance: Appropriate Consciousness: Alert Orientation: Person (Vaguely) Motor Activity: Normal gait Speech: Unremarkable, Other (Markedly disorganized) Language: Other (Today markedly disorganized) Fund of Knowledge: Inadequate Attention and Concentration: Other (Poor) Memory: Impaired Mood: Other (Euthymic to somewhat restricted mildly irritable) Affect: Other (Good range and intensity) Thought Process & Associations: Disorganized Thought Content: Other (Markedly disorganized) Hallucination Type: None Delusion Type: None, Other (Somewhat vigilant) Suicidal Ideation: No Suicidal Plan: No Suicidal Intention: No Homicidal Ideation: No Homicidal Plan: No Homicidal Intention: No Insight: Poor Judgment: Poor Assessment and Plan - Assessment (1) Dementia Code(s): F03.90 - Unspecified dementia without behavioral disturbance Status: Acute - Plan Plan: Patient remains confused disoriented though no significant behavioral problems at this time. Compliant medication. Plans at this time are for patient to be discharged on Sunday 07/15 to [facility] Justification for Continued Inpatient Stay: At this time patient would decompensate if not placed in an appropriate level of care Discharge Planning: Possible discharge to [facility] on Sunday (1) Dementia Qualifiers: Dementia type: Alzheimer's disease Alzheimer's disease onset: late-onset Dementia behavioral disturbance: with behavioral disturbance Qualified Code(s) : G30.1 - Alzheimer's disease with late onset; F02.81 - Dementia in other diseases classified elsewhere with behavioral disturbance
[2018-07-12] MEDS: QUEtiapine 25 MG Tablet PO SCH ×2 (10:44→17:08)
[2018-07-13] MEDS: Insulin NovoLOG Aspart Correctional Sugar Inj SQ SCH ×4 (07:21→20:05)
[2018-07-13] MEDS: glipiZIDE 5 MG Tablet PO SCH (08:11)
[2018-07-13] MEDS: Lisinopril 10 MG Tablet PO SCH (08:11)
[2018-07-13] MEDS: OXcarbazepine 150 MG Tablet PO SCH ×2 (08:11→20:05)
[2018-07-13] MEDS: QUEtiapine 25 MG Tablet PO SCH ×2 (09:13→18:19)
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
[2018-07-14] MEDS: Insulin NovoLOG Aspart Correctional Sugar Inj SQ SCH ×4 (08:19→21:02)
[2018-07-14] MEDS: glipiZIDE 5 MG Tablet PO SCH (08:26)
[2018-07-14] MEDS: OXcarbazepine 150 MG Tablet PO SCH ×2 (08:26→20:43)
[2018-07-14] MEDS: Lisinopril 10 MG Tablet PO SCH (08:26)
[2018-07-14] MEDS: QUEtiapine 25 MG Tablet PO SCH ×2 (09:00→18:02)
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
[2018-07-15 05:49] VITALS: BP 175/74; PULSE 75; RESP 18; TEMP 98; O2SAT 94
[2018-07-15] MEDS: Insulin NovoLOG Aspart Correctional Sugar Inj SQ SCH (08:04)
[2018-07-15] MEDS: glipiZIDE 5 MG Tablet PO SCH (08:05)
[2018-07-15] MEDS: OXcarbazepine 150 MG Tablet PO SCH (08:06)
[2018-07-15] MEDS: Lisinopril 10 MG Tablet PO SCH (08:06)
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
[2018-07-15] MEDS: QUEtiapine 25 MG Tablet PO SCH (09:30)
== END 2018-07-15 11:00 ==
LOC: H250 13:45
PROVIDERS: ADMIT Psychiatry & Neurology Psychiatry; ATTEND Psychiatry & Neurology Psychiatry

== ENCOUNTER 2018-07-17 14:44 | Inpatient (IN) ==
[2018-07-17] MEDS ORDERED: Haloperidol Inj 5 MG/ML Ampul IM ONE (15:14)
--- NOTE | 2018-07-17 15:19 | ED ---
HPI General Chief Complaint: Psychiatric Symptoms Stated Complaint: Psych Eval Time Seen by Provider: 07/17/18 15:08 Source: patient, EMS and old records reviewed Mode of arrival: EMS Limitations: other (dementia) History of Present Illness HPI Narrative: 73 YO M presents to the ED under BA for psychiatric evaluation. The patient was brought from an assisted living facility. According to the Williamson act the patient made comments that once that he wanted to kill himself then during the course of interacting with the lawyers began to yell to just kill him and shoot him in his head. He was hitting his arms with his hands and striking himself in the head repeatedly. He was placed under Williamson act. On arrival the patient is in restraints. He is verbally abusive to the staff. He is spitting at caregivers. He is unable to provide any meaningful history. Related Data Home Medications Medication Instructions Recorded Confirmed quetiapine [Seroquel] 25 mg PO BID 07/03/18 07/17/18 atorvastatin 10 mg PO DAILY 07/17/18 07/17/18 lisinopril 5 mg PO DAILY 07/17/18 07/17/18 Previous Rx's Medication Instructions Recorded donepezil 10 mg PO DAILY #30 tab 07/15/18 glipizide 2.5 mg PO DAILY #30 tab 07/15/18 memantine 10 mg PO BID #60 tab 07/15/18 oxcarbazepine 150 mg PO BID #60 tab 07/15/18 Allergies Allergy/AdvReac Type Severity Reaction Status Date / Time No Known Allergies Allergy Verified 07/03/18 14:41 [facility] Social History Social History Substance History: Unable to Obtain Second Hand Smoke Exposure: No Smoking Status: Unknown if ever smoked Tobacco Type: Cigarettes How Often Do You Have a Drink Containing Alcohol: Unable to Obtain Recent Travel in [facility] within the Last 8 Weeks: No Recent Out of Country Travel within the Last 8 Weeks: No Course Reevaluation(s) Reevaluation #1: The patient began spitting at the nurses. He scratched one nurse. He told the caregivers "I'm going to piss all over you." He attempted to bite a nurse. A spit mask was placed. The patient was moved to locked restraints and administered IM Haldol and Ativan. Time: 15:27 Initial Documented Vital Signs Temperature 97.7 F 07/17/18 15:10 Blood Pressure 152/71 H 07/17/18 15:10 Pulse Oximetry 97 07/17/18 15:10 Last Documented Vital Signs Temperature 97.7 F 07/17/18 15:10 Pulse Rate 78 07/17/18 18:02 Blood Pressure 181/87 H 07/17/18 18:02 Pulse Oximetry 97 07/17/18 18:02 Medical Decision Making MDM Narrative Medical decision making narrative: 73 YO M presents to the ED under BA for psychiatric evaluation. The patient was brought from an assisted living facility. According to the Williamson act the patient made comments that once that he wanted to kill himself then during the course of interacting with the lawyers began to yell to just kill him and shoot him in his head. He was hitting his arms with his hands and striking himself in the head repeatedly. He was placed under Williamson act. On arrival the patient is in restraints. He is verbally abusive to the staff. He is spitting at caregivers. He is unable to provide any meaningful history. The patient is hypertensive on arrival. Physical exam is limited 2/2 patients hostility, spitting and attempting to bite and hit providers. Basic lab work unremarkable. Review of the record reveals that the patient was discharged 2 days ago. Receiving facility says "patient is beyond our scope." Consult placed with special education case manager. On recheck patient is resting quietly. Daily medications ordered. He is medically cleared for psychiatric evaluation. Medical Screen Exam Complete: Yes Emergency Medical Condition: Yes Differential Diagnosis Differential Diagnosis: Adjustment disorder versus anxiety versus bipolar versus depression versus dementia versus PTSD versus other Lab Data Result diagrams: 07/17/18 16:25 07/17/18 16:25 Lab Results 07/17/18 07/17/18 07/17/18 Range/Units 16:25 16:25 17:01 WBC 6.3 (4.0-11.0) th/mm3 RBC 4.29 L (4.50-5.90) mil/mm3 Hgb 13.5 (13.0-17.0) gm/dL Hct 39.5 (39.0-51.0) % MCV 91.9 (80.0-100.0) fL MCH 31.5 (27.0-34.0) pg MCHC 34.3 (32.0-36.0) % RDW 13.4 (11.6-17.2) % Plt Count 176 (150-450) th/mm3 MPV 9.0 (7.0-11.0) fL Neut % (Auto) 63.1 (16.0-70.0) % Lymph % (Auto) 22.1 (9.0-44.0) % [place] % (Auto) 9.5 H (0.0-8.0) % Eos % (Auto) 4.2 H (0.0-4.0) % Baso % (Auto) 1.1 (0.0-2.0) % Neut # (Auto) 4.0 (1.8-7.7) th/mm3 Lymph # (Auto) 1.4 (1.0-4.8) th/mm3 [place] # (Auto) 0.6 (0.0-0.9) th/mm3 Eos # (Auto) 0.3 (0.0-0.4) th/mm3 Baso # (Auto) 0.1 (0.0-0.2) th/mm3 WBC Differential . Differential Comment Auto diff final Sodium 136 (136-145) meq/L Potassium 4.4 (3.5-5.1) meq/L Chloride 103 (98-107) meq/L Carbon Dioxide 27.6 (21.0-32.0) meq/L Anion Gap 5 (5-15) meq/L BUN 16 (7-18) mg/dL Creatinine 1.15 (0.60-1.30) mg/dL Estimated GFR 62 L (>89) mL/min Random Glucose 95 (74-106) mg/dL Calcium 8.2 L (8.5-10.1) mg/dL Magnesium 1.6 (1.5-2.5) mg/dL Total Bilirubin 0.5 (0.2-1.0) mg/dL AST 26 (15-37) U/L ALT 35 (12-78) U/L Alkaline Phosphatase 71 (45-117) U/L Total Protein 7.2 (6.4-8.2) g/dL Albumin 3.6 (3.4-5.0) g/dL TSH 2.940 (0.358-3.740) uIU/mL Urine Opiates Screen Neg (Neg) Ur Barbiturates Screen Neg (Neg) Ur Amphetamines Screen Neg (Neg) U Benzodiazepines Scrn Neg (Neg) Urine Cocaine Screen Neg (Neg) U Cannabinoids Screen Neg (Neg) Serum Alcohol Less than 3 (0-5) mg/dL Discharge Plan Discharge Disposition Patient Disposition: Sign Out(ED Internal Use Only) Physicians Team ED Provider: Carlos Meneses ED Midlevel Provider: Tiny Peoples Primary Care Provider: UNKNOWN, Rxs /Orders / Referrals /Forms Prescriptions: No Action oxcarbazepine 150 mg Tablet 150 mg PO BID Qty: 60 RF: 0 donepezil 10 mg Tablet 10 mg PO DAILY Qty: 30 RF: 0 glipizide 2.5 mg Tablet Extended Release 24hr 2.5 mg PO DAILY Qty: 30 RF: 0 memantine 10 mg Tablet 10 mg PO BID Qty: 60 RF: 0 lisinopril 10 mg tablet 5 mg PO DAILY RF: 0 atorvastatin 10 mg Tablet 10 mg PO DAILY RF: 0 quetiapine [Seroquel] 25 mg Tablet 25 mg PO BID RF: 0 Discharge Interventions Interventions: Vital Signs Last Done: 07/17/18 18:02 Status ED Status: Medically Cleared
[2018-07-17 16:36] LABS: Baso # (Auto) 0.1 th/mm3 (0.0-0.2); Baso % (Auto) 1.1 % (0.0-2.0); Eos # (Auto) 0.3 th/mm3 (0.0-0.4); Eos % (Auto) 4.2 % (0.0-4.0); Hematocrit 39.5 % (39.0-51.0); Hemoglobin 13.5 gm/dL (13.0-17.0); Lymph # (Auto) 1.4 th/mm3 (1.0-4.8); Lymph % (Auto) 22.1 % (9.0-44.0); Mean Corpuscular HGB Conc 34.3 % (32.0-36.0); Mean Corpuscular Hemoglobin 31.5 pg (27.0-34.0); Mean Corpuscular Volume 91.9 fL (80.0-100.0); Mono # (Auto) 0.6 th/mm3 (0.0-0.9); Mono % (Auto) 9.5 % (0.0-8.0); Neut % (Auto) 63.1 % (16.0-70.0); Platelet Count 176 th/mm3 (150-450); Red Blood Count 4.29 mil/mm3 (4.50-5.90); Red Cell Distribution Width 13.4 % (11.6-17.2); White Blood Count 6.3 th/mm3 (4.0-11.0)
[2018-07-17 16:56] LABS: Alanine Aminotransferase 35 U/L (12-78); Albumin 3.6 g/dL (3.4-5.0); Anion Gap 5 meq/L (5-15); Aspartate Aminotransferase 26 U/L (15-37); Blood Urea Nitrogen 16 mg/dL (7-18); Calcium 8.2 mg/dL (8.5-10.1); Carbon Dioxide 27.6 meq/L (21.0-32.0); Chloride 103 meq/L (98-107); Glomerular Filtration Rate 62 mL/min (>89); Glucose,Random 95 mg/dL (74-106); Magnesium 1.6 mg/dL (1.5-2.5); Potassium 4.4 meq/L (3.5-5.1); Sodium 136 meq/L (136-145)
[2018-07-17 17:05] LABS: Alkaline Phosphatase 71 U/L (45-117); Total Protein 7.2 g/dL (6.4-8.2)
[2018-07-17 17:44] LABS: Amphetamine Screen,Urine Neg (Neg); Barbiturate Screen,Urine Neg (Neg); Cannabinoid Screen,Urine Neg (Neg); Cocaine Screen,Urine Neg (Neg)
[2018-07-17 17:46] LABS: Opiate Screen,Urine Neg (Neg)
[2018-07-17] MEDS: QUEtiapine 25 MG Tablet PO SCH (22:55)
[2018-07-18] MEDS ORDERED: glipiZIDE 5 MG Tablet PO SCH (07:00)
[2018-07-18] MEDS ORDERED: Lisinopril 5 MG Tablet PO SCH (09:00)
[2018-07-18] MEDS ORDERED: Aluminum/Magnesium/Simethacone Susp 30 ML UDC PO PRN (12:48)
[2018-07-18] MEDS ORDERED: Acetaminophen 325 MG Tablet PO PRN (12:48)
--- NOTE | 2018-07-18 12:56 | P.HPPSY ---
Provisional Diagnosis Admission Date: July 17, 2018 23:48 [place] [facility].: Dementia with behavioral disturbances, Alzheimer's disease late onset Competence Certification of Person's Competence To Provide Express and Informed Consent I have personally examined Jose Manuel Menezes, a person being served at [facility] on, July 18, 2018 1252. Express and informed consent means consent voluntarily given in writing, by a competent person, after sufficient explanation and disclosure of the subject matter involved to enable the person to make a knowing and willful decision without any element of force, fraud, deceit, duress, or other form of constraint or coercion. This person is 18 years of age or older, is not now known to be incompetent to consent to treatment with a guardian advocate, and does not have a health care surrogate or proxy currently making medical treatment decisions. I have found this person to be one of the following: [] Competent to provide express and informed consent, as defined above, for voluntary admission to this facility and is competent to provide express and informed consent for treatment. He/she has the consistent capacity to make well reasoned, willful, and knowing decisions concerning his or her medical or mental health treatment. The person fully and consistently understands the purpose of the admission for examination/placement and is fully capable of personally exercising all rights assured [place]xxx] Incompetent to provide express and informed consent to voluntary admission , and this is incompetent to provide express and informed consent to treatment. The person must be transferred to involuntary status and a petition for a guardian advocate filed with the Circuit Court. [] Refusing to provide express and informed consent to voluntary admission but is competent to provide express and informed consent for treatment. The person must be discharged or transferred to involuntary status. Form shall be completed within 24 hours of a person's arrival at the receiving facility and filed in the clinical record of each person: 1. Admitted on a voluntary basis 2. Permitted to provide express and informed consent to his/her own treatment 3. Allowed to transfer from involuntary to voluntary status 4. Prior to permitting a person to consent to his or her own treatment after having been previously found incompetent to consent to treatment. History of Present Illness Capacity: Lacks capacity History of Present Illness: Patient is a 73-year-old white male who comes here under Williamson act by the emergency Police Department dated 07/17/2018 at 150 that document reviewed essentially states Mr. Menezes came to [address] [facility] from [place] he is diagnosed with dementia staff stated he made comments at lunch he wanted to kill himself. When asked upon my arrival he denies this. Mr. Menezes continue to talk to him on sequential sentences that did not make sense. Patient Gus during the course of the call began to yell to just kill him and shoot him in the head. He then began hitting his arms with his hands subsequently striking himself in the head repeatedly. From this point he was placed in protective custody we were unable to reach any family members to see if they would make a determination for treatment or care. It was my opinion due to his diagnosed mental status self harm my presence that if left untreated that he reports a danger to himself and possibly others. Patient was seen screen in the ED urine toxicology negative blood alcohol level negative. Of interest patient was hospitalized here for 10 days being discharged 07/15/2018 to that facility. Behaviors then are similar to the behaviors he is presenting with now. At this time patient sitting quietly on 2700 unit day room. He is alert though diffusely confused in all 4 spheres speaking nonsensical. He is vague about suicidality and vague about voices or visions. At this time patient does meet criteria for further inpatient psychiatric hospitalization under the Williamson act I will do first opinion request second opinion. I feel he does not have capacity thus I will ask for healthcare surrogate and guardian advocate. His daughter did play that role with the last hospitalization we will attempt to reach her to get permission to treat this man again. Hopefully we will be able to stabilize him further and attempt to find another appropriate placement for him - Inpatient Certification I certify that the inpatient services were ordered in accordance with Medicare regulations governing the order. This includes certification that hospital inpatient services are reasonable and necessary and in the case of services not specified as inpatient-only under 42 CFR 419.22(n), that they are appropriately provided as inpatient services in accordance to with the 2-midnight benchmark under 43 CFR 412.3(e) I certify that inpatient psychiatric hospital services are medically necessary. Evaluation and treatment and/or diagnostic testing are expected to improve the patient's condition. The patient needs on a daily basis, active treatment furnished directly by or requiring the supervision of inpatient psychiatric facility personnel. Estimated Total Length of Stay (Days): 7 Plans for Post Hospital Care: Not yet determined Review of Systems unobtainable due to mental status PMFSH - History History Provided By: Medical Record - Medical History Medical History: Medical History (Last Reviewed 07/18/18 @ 12:59 by Vipin Hernandez MD) Dementia Diabetes Hypertension - Surgical History Surgical History: Surgical History (Last Reviewed 07/18/18 @ 12:59 by Vipin Hernandez MD) History of carpal tunnel release - Family History Family History: Family History (Last Reviewed 07/18/18 @ 12:59 by Vipin Hernandez MD) Other Diabetes - Social History I have reviewed the patient's Social History: Yes - Tobacco History Second Hand Smoke Exposure: No Smoking Status: Unknown if ever smoked Tobacco Type: Cigarettes - Alcohol History How Often Do You Have a Drink Containing Alcohol: Never - Substance Use History Substance History: Unable to Obtain - Travel History Recent Travel in the [place] Within the Last 8 Weeks: No Recent Travel Out of the Country Within the Last 8 Weeks: No - Immunization History Tetanus Immunization: Unable to Assess Quality Measures - Psychiatric History Psychological trauma history: None Violence risk to others in the last 6 months: Patient is somewhat agitated at his recent new placement Violence risk to self in the last 6 months: Patient made suicidal statements was also doing self-injurious behaviors - Substance Abuse History Drug or alcohol use in the past 12 months: Denied - Patient Strengths Patient's strengths (minimum of 2): Patient has supportive family able [place] [facility] Medications and Allergies Active Medications: Active Medications Acetaminophen (Tylenol) 650 mg PO Q4H PRN PRN Reason: Pain 1-5 or Temp >101F Al Hydrox/Mg Hydrox/Simethicone (Mag-Al Plus Susp Liq) 30 ml PO Q6H PRN PRN Reason: DYSPEPSIA Atorvastatin Calcium (Lipitor) 10 mg PO DAILY [facility] Last Admin: 07/18/18 08:45 Dose: 10 mg Atorvastatin Calcium (Lipitor) 10 mg PO DAILY JONNATHAN Donepezil HCl (Aricept) 10 mg PO DAILY [facility] Last Admin: 07/18/18 08:45 Dose: 10 mg Glipizide (Glucotrol) 2.5 mg PO DAILYAC [facility] Last Admin: 07/18/18 06:08 Dose: 2.5 mg Lisinopril (Prinivil) 5 mg PO DAILY [facility] Last Admin: 07/18/18 08:46 Dose: 5 mg Memantine (Namenda) 10 mg PO BID [facility] Last Admin: 07/18/18 08:46 Dose: 10 mg Non-Formulary Medication (Donepezil [Donepezil]) 10 mg PO DAILY [facility] Non-Formulary Medication (Glipizide [Glipizide]) 2.5 mg PO DAILY [facility] Oxcarbazepine (Trileptal) 150 mg PO BID [facility] Quetiapine Fumarate (Seroquel) 25 mg PO BID [facility] Last Admin: 07/17/18 22:55 Dose: 25 mg Allergies Allergy/AdvReac Type Severity Reaction Status Date / Time No Known Allergies Allergy Verified 07/03/18 14:41 Home Medications Medication Instructions Recorded Confirmed Type quetiapine [Seroquel] 25 mg PO BID 07/03/18 07/17/18 History atorvastatin 10 mg PO DAILY 07/17/18 07/17/18 History lisinopril 5 mg PO DAILY 07/17/18 07/17/18 History Results - Labs CBC & Chem 7: 07/17/18 16:25 07/17/18 16:25 Labs: Laboratory Results - last 24 hr 07/17/18 07/17/18 07/17/18 16:25 16:25 17:01 WBC 6.3 RBC 4.29 L Hgb 13.5 Hct 39.5 MCV 91.9 MCH 31.5 MCHC 34.3 RDW 13.4 Plt Count 176 MPV 9.0 Neut % (Auto) 63.1 Lymph % (Auto) 22.1 [place] % (Auto) 9.5 H Eos % (Auto) 4.2 H Baso % (Auto) 1.1 Neut # (Auto) 4.0 Lymph # (Auto) 1.4 [place] # (Auto) 0.6 Eos # (Auto) 0.3 Baso # (Auto) 0.1 WBC Differential . Differential Comment Auto diff final Sodium 136 Potassium 4.4 Chloride 103 Carbon Dioxide 27.6 Anion Gap 5 BUN 16 Creatinine 1.15 Estimated GFR 62 L Random Glucose 95 Calcium 8.2 L Magnesium 1.6 Total Bilirubin 0.5 AST 26 ALT 35 Alkaline Phosphatase 71 Total Protein 7.2 Albumin 3.6 TSH 2.940 Urine Opiates Screen Neg Ur Barbiturates Screen Neg Ur Amphetamines Screen Neg U Benzodiazepines Scrn Neg Urine Cocaine Screen Neg U Cannabinoids Screen Neg Serum Alcohol Less than 3 Exam Vital signs: Vital Signs 07/17/18 15:10 07/17/18 18:02 07/17/18 20:44 Temperature 97.7 F Pulse Rate 78 64 Respiratory Rate 18 Blood Pressure 152/71 H 181/87 H 114/61 Pulse Oximetry 97 97 97 07/17/18 22:51 07/18/18 01:45 07/18/18 04:58 Temperature 97.2 F L Pulse Rate 75 104 H Respiratory Rate 18 18 18 Blood Pressure 141/65 H 145/82 H Pulse Oximetry 96 96 Intake & Output 07/17/18 07/18/18 07/18/18 18:59 06:59 18:59 Weight 81.647 kg Narrative: Patient sitting quietly in a chair in the dayroom he is in no acute distress, he is in no respiratory distress, no complaints of chest pain or abdominal pain. Patient moving all 4 extremities without difficulty Mental Status Examination Appearance: Appropriate Consciousness: Alert Orientation: Person (Vaguely) Motor Activity: Other (Somewhat shuffling) Speech: Hesitant, Other (Markedly disorganized) Language: Other (Markedly disorganized) Fund of Knowledge: Poor Attention and Concentration: Easily distracted Memory: Impaired Mood: Other (Restricted to irritable) Affect: Other (Slight increased range and intensity) Thought Process & Associations: Disorganized Thought Content: Other (Disorganized) Hallucination Type: None Delusion Type: None Suicidal Ideation: No Suicidal Plan: No Suicidal Intention: No Homicidal Ideation: No Homicidal Plan: No Homicidal Intention: No Insight: Poor Judgment: Poor Assessment and Plan - Assessment (1) Dementia in other diseases classified elsewhere with behavioral disturbance Code(s): F02.81 - Dementia in other diseases classified elsewhere with behavioral disturbance Status: Acute (2) Alzheimer's disease with late onset Code(s): G30.1 - Alzheimer's disease with late onset; F02.80 - Dementia in other diseases classified elsewhere without behavioral disturbance Status: Acute - Plan Plan: Estimated LOS: [] days Patient meets criteria for involuntary psychiatric hospitalization on the Williamson act. I will do first opinion request second opinion. I feel he does not have capacity thus I will ask for healthcare surrogate and guardian advocate. We will attempt to continue medication as per the med reconciliation. When asked daughter to be healthcare surrogate role she performed with his previous hospitalization Justification for Continued Inpatient Stay: At this time patient with decompensated placed on a lower level of care Request Healthcare Surrogate/Guardian Advocate?: Yes
[2018-07-18] MEDS: OXcarbazepine 150 MG Tablet PO SCH ×3 (13:12→21:01)
[2018-07-18] MEDS: QUEtiapine 25 MG Tablet PO SCH ×2 (13:12→20:25)
[2018-07-19] MEDS ORDERED: glipiZIDE 5 MG Tablet PO SCH (09:00)
[2018-07-19] MEDS: Lisinopril 10 MG Tablet PO SCH (09:20)
[2018-07-19] MEDS: OXcarbazepine 150 MG Tablet PO SCH ×2 (09:20→21:51)
[2018-07-19] MEDS: QUEtiapine 25 MG Tablet PO SCH ×3 (09:20→21:31)
--- NOTE | 2018-07-19 09:36 | P.PNPSY ---
Subjective Chief Complaint: Recurrent agitation with self-injurious behaviors and suicidal ideations. Remarks: The patient was seen for the purpose of providing a second opinion to the Williamson act order. Chart reviewed to include emergency department paperwork and the attending's history and physical. Patient discussed with nursing staff; we reviewed the patient's mood, thoughts, and behaviors since arrival to the unit. The patient consistently is oriented only to self. He made statements to nursing this morning that he is not going to be around for much longer. He has been refusing medications and has intermittent outbursts of verbal aggression. The patient was interviewed while sitting in the day room. His answers to questions were evident of tangential and disorganized thinking. Patient was without insight into where he was and why he was here. Mental Status Examination Appearance: Appropriate Consciousness: Alert Orientation: Person (Vaguely) Motor Activity: Other (Somewhat shuffling) Speech: Hesitant, Other (Markedly disorganized) Language: Other (Markedly disorganized) Fund of Knowledge: Poor Attention and Concentration: Easily distracted Memory: Impaired Mood: Other (Restricted to irritable) Affect: Other (Slight increased range and intensity) Thought Process & Associations: Disorganized Thought Content: Other (Disorganized) Hallucination Type: None Delusion Type: None Suicidal Ideation: No Suicidal Plan: No Suicidal Intention: No Homicidal Ideation: No Homicidal Plan: No Homicidal Intention: No Insight: Poor Judgment: Poor Assessment and Plan - Assessment (1) Dementia in other diseases classified elsewhere with behavioral disturbance Code(s): F02.81 - Dementia in other diseases classified elsewhere with behavioral disturbance Status: Acute (2) Alzheimer's disease with late onset Code(s): G30.1 - Alzheimer's disease with late onset; F02.80 - Dementia in other diseases classified elsewhere without behavioral disturbance Status: Acute - Plan Plan: The patient meets criteria for involuntary psychiatric admission due to his lack of awareness as to the need for inpatient stabilization and substantial risk of intermittent harm to self if discharged to a less restrictive environment. Justification for Continued Inpatient Stay: Patient remains an elevated risk for self-harm by self neglect as well as self- injurious behaviors and will require further inpatient stabilization and preparation of a safe discharge plan. Moving patient to a less restrictive environment at this time may result in decompensation. Request Healthcare Surrogate/Guardian Advocate?: Yes
--- NOTE | 2018-07-19 10:04 | P.PNPSY ---
Subjective Chief Complaint: Recurrent agitation with self-injurious behaviors and suicidal ideations. Remarks: Patient is seen in day room with nurse Gallardo, chart reviewed, patient compliant medication. It appears patient did not sleep well last night continued irritable and somewhat intrusive but redirectable. This morning patient remains intrusive somewhat irritable and challenging and at times somewhat flirtatious with the female staff. We will increase Seroquel to 25 mg 8 AM and 4 PM and 50 mg at at bedtime Review of Systems All other systems reviewed negative except as stated in HPI Mental Status Examination Appearance: Appropriate Consciousness: Alert Orientation: Person (Vaguely) Motor Activity: Other (Somewhat shuffling) Speech: Hesitant, Other (Markedly disorganized) Language: Other (Markedly disorganized) Fund of Knowledge: Poor Attention and Concentration: Easily distracted Memory: Impaired Mood: Other (Restricted to irritable) Affect: Other (Slight increased range and intensity) Thought Process & Associations: Disorganized Thought Content: Other (Disorganized) Hallucination Type: None Delusion Type: None Suicidal Ideation: No Suicidal Plan: No Suicidal Intention: No Homicidal Ideation: No Homicidal Plan: No Homicidal Intention: No Insight: Poor Judgment: Poor Assessment and Plan - Assessment (1) Dementia in other diseases classified elsewhere with behavioral disturbance Code(s): F02.81 - Dementia in other diseases classified elsewhere with behavioral disturbance Status: Acute (2) Alzheimer's disease with late onset Code(s): G30.1 - Alzheimer's disease with late onset; F02.80 - Dementia in other diseases classified elsewhere without behavioral disturbance Status: Acute - Plan Plan: Patient remains quite confused and disorganized, see medication adjustment above. Patient remains somewhat flirtatious with female staff concerning patient's dementia is history of hypertension and diabetes we will request a hospitalist consultation Justification for Continued Inpatient Stay: At this time patient with decompensated placed in a lower level of care Discharge Planning: To be determined and is with the assistance of from family Request Healthcare Surrogate/Guardian Advocate?: Yes (2) Alzheimer's disease with late onset Qualifiers: Dementia behavioral disturbance: with behavioral disturbance Qualified Code(s ): G30.1 - Alzheimer's disease with late onset; F02.81 - Dementia in other diseases classified elsewhere with behavioral disturbance
--- NOTE | 2018-07-19 17:02 | P.CONIM ---
History of Present Illness Service: Hospitalist Consult date: 07/19/18 Requesting Physician: Vipin Hernandez Reason for Consult: Assist with ongoing medical management Primary Care Provider: UNKNOWN History of Present Illness: This is a 73yo male patient with a PMHX significant for dementia, HTN and diabetes who was just hospitalized here at [facility] in the inpatient psychiatric unit from 07/05/18 to 07/15/18 for worsening dementia with aggressive behavior and was discharge to [facility]. Patient presented to [facility] ED on 07/17 under BA due to patient making suicidal statements, displaying self injurious behavior and being aggressive towards staff/caregivers. Patient has since been admitted to inpatient psychiatric unit and hospitalist services have been consulted to assist with ongoing medical management. Patient seen and examined. He is pleasantly confused. He is unable to provide any meaningful history. He is noted to be ambulating around the med/psych unit without any difficulties. Patient does not voice any acute medical complaints or concerns. He denies any fever, chills, dizziness, N/V, weakness, chest pain, dyspnea or abdominal pain. He denies any urinary difficulties or bowel complaints. Review of Systems Review of Systems: all other systems reviewed are negative PMFSH Medical History Medical History Dementia (Acute) Diabetes (Acute) Hypertension (Acute) Surgical History Surgical History History of carpal tunnel release (Acute) Family History Family History Other Diabetes Social History Social History Substance History: Unable to Obtain Second Hand Smoke Exposure: No Smoking Status: Unknown if ever smoked Tobacco Type: Cigarettes How Often Do You Have a Drink Containing Alcohol: Never Recent Travel in [place] within the Last 8 Weeks: No Recent Out of Country Travel within the Last 8 Weeks: No Immunization History Tetanus Immunization: Unable to Assess Medications and Allergies Allergies Allergy/AdvReac Type Severity Reaction Status Date / Time No Known Allergies Allergy Verified 07/03/18 14:41 Home Medications Medication Instructions Recorded Confirmed Type quetiapine [Seroquel] 25 mg PO BID 07/03/18 07/17/18 History atorvastatin 10 mg PO DAILY 07/17/18 07/17/18 History lisinopril 5 mg PO DAILY 07/17/18 07/17/18 History Active Medications: Active Medications Acetaminophen (Tylenol) 650 mg PO Q4H PRN PRN Reason: Pain 1-5 or Temp >101F Al Hydrox/Mg Hydrox/Simethicone (Mag-Al Plus Susp Liq) 30 ml PO Q6H PRN PRN Reason: DYSPEPSIA Al Hydroxide/Mg Hydroxide (Milk Of Magnesia Liq) 30 ml PO Q12H PRN PRN Reason: Mild Constipation Atorvastatin Calcium (Lipitor) 10 mg PO DAILY [facility] Last Admin: 07/19/18 09:20 Dose: 10 mg Donepezil HCl (Aricept) 10 mg PO DAILY [facility] Last Admin: 07/19/18 09:21 Dose: 10 mg Hydroxyzine HCl (Atarax) 50 mg PO Q6H PRN PRN Reason: ANXIETY Lisinopril (Prinivil) 5 mg PO DAILY [facility] Last Admin: 07/19/18 09:20 Dose: 5 mg Memantine (Namenda) 10 mg PO BID [facility] Last Admin: 07/19/18 09:21 Dose: 10 mg Oxcarbazepine (Trileptal) 150 mg PO BID [facility] Last Admin: 07/19/18 09:20 Dose: 150 mg Quetiapine Fumarate (Seroquel) 50 mg PO [facility] Quetiapine Fumarate (Seroquel) 25 mg PO BID@08,16 [facility] Last Admin: 07/19/18 16:12 Dose: 25 mg Sennosides (Senokot) 17.2 mg PO Q12H PRN PRN Reason: Moderate Constipation Physical Exam Vital signs: Last Vital Signs Temp 98.5 F 07/19/18 05:23 Pulse 82 07/19/18 09:35 Resp 18 07/19/18 05:23 BP 141/70 H 07/19/18 09:35 Pulse Ox 98 07/19/18 05:23 Intake & Output 07/17/18 07/18/18 07/19/18 07/20/18 06:59 06:59 06:59 06:59 Intake Total 820 / 820 Balance 820 / 820 Weight 81.647 kg Narrative: GENERAL: WDWN elderly male patient, INAD. Awake and alert. Ambulating around unit without any difficulty. Oriented to self. SKIN: Warm and dry. HEAD: Atraumatic. Normocephalic. EYES: Pupils equal and round. No scleral icterus. No injection or drainage. ENT: No nasal bleeding or discharge. Mucous membranes pink and moist. NECK: Trachea midline. CARDIOVASCULAR: Regular rate and rhythm. RESPIRATORY: No accessory muscle use. Clear to auscultation. Breath sounds equal bilaterally. GASTROINTESTINAL: Abdomen soft, non-tender, nondistended. Hepatic and splenic margins not palpable. MUSCULOSKELETAL: Extremities without clubbing, cyanosis, or edema. No obvious deformities. NEUROLOGICAL: Awake and alert. No obvious cranial nerve deficits. Motor grossly within normal limits. Able to move all extremities spontaneously. Normal speech. PSYCHIATRIC: Calm and cooperative. Judgement and insight poor. Results Labs CBC & Chem 7: 07/17/18 16:25 07/17/18 16:25 Assessment and Plan (1) Dementia in other diseases classified elsewhere with behavioral disturbance : Code(s): F02.81 - Dementia in other diseases classified elsewhere with behavioral disturbance Status: Acute (2) Alzheimer's disease with late onset: Code(s): G30.1 - Alzheimer's disease with late onset; F02.80 - Dementia in other diseases classified elsewhere without behavioral disturbance Status: Acute Plan 73yo male patient with a PMHX significant for dementia, HTN and diabetes admitted under Williamson Act for worsening dementia with aggressive behavior, making suicidal statements and displaying self injurious behavior. Hospitalist services have been consulted to assist with ongoing medical management. Dementia with behavioral disturbance, patient recently admitted for same 07/05 - 07/15 Suicidal ideation Self injurious behavior Williamson Acted CT head last admit reviewed and without any abnormality TSH 2.940 B12 350 on 07/05 -obtain UA to r/o UTI as metabolic cause of behavioral change -continue on Namenda and Aricept -management per psychiatry team HTN, labile, suspect secondary to episodes of agitation -resume home medications -add Hydralazine 10mg po prn SBP>160/90 likely secondary to agitation -monitor BP and adjust treatment accordingly DM blood sugars too tightly controlled with hypoglycemic BS in 60s -d/c Glipizide -accuchecks and ISS Dyslipidemia -resume home stating therapy DVT prophylaxis -patient is ambulatory Thank you for this consultation. Patient appears stable from hospitalist standpoint. [facility] will sign off. Please reconsult if needed. _ (1) Alzheimer's disease with late onset Qualifiers: Dementia behavioral disturbance: with behavioral disturbance Qualified Code(s ): G30.1 - Alzheimer's disease with late onset; F02.81 - Dementia in other diseases classified elsewhere with behavioral disturbance
[2018-07-19] MEDS ORDERED: hydrALAZINE 10 MG Tablet PO PRN (17:40)
[2018-07-20 04:13] LABS: Bilirubin,Urine Negative (Negative); Clarity,Urine Clear (Clear); Color,Urine Yellow (Yellw/Straw); Glucose,Urine (UA) Negative (Negative); Hyaline Casts,Urine 1 /lpf (0-3); Leukocyte Esterase,Urine Negative (Negative); Mucus,Urine Few /lpf (Occasional); Nitrite,Urine Negative (Negative); Specific Gravity,Urine 1.014 (1.002-1.035)
[2018-07-20] MEDS: QUEtiapine 25 MG Tablet PO SCH ×3 (08:40→21:27)
[2018-07-20] MEDS: Lisinopril 10 MG Tablet PO SCH (08:40)
[2018-07-20] MEDS: OXcarbazepine 150 MG Tablet PO SCH ×2 (08:40→21:27)
[2018-07-20] MEDS ORDERED: Dextrose 50% in Water 50 ML Vial IV.PUSH PRN (10:52)
[2018-07-20] MEDS: Insulin NovoLOG Aspart Correctional Sugar Inj SQ SCH ×3 (11:36→21:33)
--- NOTE | 2018-07-20 14:47 | P.PNPSY ---
Subjective Chief Complaint: Recurrent agitation with self-injurious behaviors and suicidal ideations. Remarks: Patient was seen and case discussed with nursing. Patient continues with his one-to-one. Patient was interviewed in the hallway today. Patient is labile and hyperverbal, responding to internal stimuli. He is tolerating his Seroquel well. Per nursing, he is combative with staff at times but has not required any ETO's. He is confused and wandering the hallways talking to himself. Review of Systems All other systems reviewed negative except as stated in HPI Mental Status Examination Appearance: Appropriate Consciousness: Alert Orientation: Person (Vaguely) Motor Activity: Other (Somewhat shuffling) Speech: Hesitant, Other (Markedly disorganized) Language: Other (Markedly disorganized) Fund of Knowledge: Poor Attention and Concentration: Easily distracted Memory: Impaired Mood: Anxious, Other (Restricted to irritable) Affect: Other (Slight increased range and intensity) Thought Process & Associations: Disorganized Thought Content: Other (Disorganized) Hallucination Type: None Delusion Type: None Suicidal Ideation: No Suicidal Plan: No Suicidal Intention: No Homicidal Ideation: No Homicidal Plan: No Homicidal Intention: No Insight: Poor Judgment: Poor Assessment and Plan - Assessment (1) Dementia in other diseases classified elsewhere with behavioral disturbance Code(s): F02.81 - Dementia in other diseases classified elsewhere with behavioral disturbance Status: Acute (2) Alzheimer's disease with late onset Code(s): G30.1 - Alzheimer's disease with late onset; F02.80 - Dementia in other diseases classified elsewhere without behavioral disturbance Status: Acute - Plan Plan: Continue current treatment plan Justification for Continued Inpatient Stay: Patient would decompensate in a less restrictive setting Request Healthcare Surrogate/Guardian Advocate?: Yes (2) Alzheimer's disease with late onset Qualifiers: Dementia behavioral disturbance: with behavioral disturbance Qualified Code(s ): G30.1 - Alzheimer's disease with late onset; F02.81 - Dementia in other diseases classified elsewhere with behavioral disturbance
[2018-07-20 17:51] VITALS: RESP 18
[2018-07-21] MEDS: Insulin NovoLOG Aspart Correctional Sugar Inj SQ SCH ×5 (08:25→20:51)
[2018-07-21] MEDS: Lisinopril 10 MG Tablet PO SCH (08:26)
[2018-07-21] MEDS: OXcarbazepine 150 MG Tablet PO SCH ×2 (08:26→20:06)
[2018-07-21] MEDS: QUEtiapine 25 MG Tablet PO SCH ×3 (08:26→20:05)
--- NOTE | 2018-07-21 13:48 | P.PNPSY ---
Subjective Chief Complaint: Recurrent agitation with self-injurious behaviors and suicidal ideations. Remarks: Patient was seen and case discussed with nursing. Patient is oriented x1. He is less labile today. He remains internally preoccupied and not focused on the interview. Pleasantly confused. Slept all night per nursing Review of Systems All other systems reviewed negative except as stated in HPI Mental Status Examination Appearance: Appropriate Consciousness: Alert Orientation: Person (Vaguely) Motor Activity: Other (Somewhat shuffling) Speech: Hesitant, Other (Markedly disorganized) Language: Other (Markedly disorganized) Fund of Knowledge: Poor Attention and Concentration: Easily distracted Memory: Impaired Mood: Anxious, Other (Restricted to irritable) Affect: Other (Slight increased range and intensity) Thought Process & Associations: Disorganized Thought Content: Other (Disorganized) Hallucination Type: None Delusion Type: None Suicidal Ideation: No Suicidal Plan: No Suicidal Intention: No Homicidal Ideation: No Homicidal Plan: No Homicidal Intention: No Insight: Poor Judgment: Poor Assessment and Plan - Assessment (1) Dementia in other diseases classified elsewhere with behavioral disturbance Code(s): F02.81 - Dementia in other diseases classified elsewhere with behavioral disturbance Status: Acute (2) Alzheimer's disease with late onset Code(s): G30.1 - Alzheimer's disease with late onset; F02.80 - Dementia in other diseases classified elsewhere without behavioral disturbance Status: Acute - Plan Plan: Continue current treatment plan Justification for Continued Inpatient Stay: Patient would decompensate in a less restrictive setting Request Healthcare Surrogate/Guardian Advocate?: Yes (2) Alzheimer's disease with late onset Qualifiers: Dementia behavioral disturbance: with behavioral disturbance Qualified Code(s ): G30.1 - Alzheimer's disease with late onset; F02.81 - Dementia in other diseases classified elsewhere with behavioral disturbance
[2018-07-22 06:41] VITALS: BP 164/76; PULSE 76; TEMP 98; O2SAT 94
[2018-07-22] MEDS: Insulin NovoLOG Aspart Correctional Sugar Inj SQ SCH ×2 (07:15→12:24)
[2018-07-22] MEDS: OXcarbazepine 150 MG Tablet PO SCH (08:24)
[2018-07-22] MEDS: Lisinopril 10 MG Tablet PO SCH (08:24)
[2018-07-22] MEDS: QUEtiapine 25 MG Tablet PO SCH (08:25)
--- NOTE | 2018-07-22 11:26 | P.DSPSY ---
Psychiatry Discharge Summary Inpatient Psychiatric care?: Yes Advance Directives: No Mental Health Advance Directive: No Health Care Proxy: No - Admission Admission Date: July 17, 2018 23:48 - Admission Diagnosis (1) Dementia in other diseases classified elsewhere with behavioral disturbance Code(s): F02.81 - Dementia in other diseases classified elsewhere with behavioral disturbance (2) Alzheimer's disease with late onset Code(s): G30.1 - Alzheimer's disease with late onset; F02.80 - Dementia in other diseases classified elsewhere without behavioral disturbance Brief History: Patient is a 73-year-old white male who comes here under [place] act by the emergency [employer] dated 07/17/2018 at 150 that document reviewed essentially states Mr. Weber came to [address] [place] [address] assisted [facility] from [place] he is diagnosed with dementia staff stated he made comments at lunch he wanted to kill himself. When asked upon my arrival he denies this. Mr. Weber continue to talk to him on sequential sentences that did not make sense. Patient Gus during the course of the call began to yell to just kill him and shoot him in the head. He then began hitting his arms with his hands subsequently striking himself in the head repeatedly. From this point he was placed in protective custody we were unable to reach any family members to see if they would make a determination for treatment or care. It was my opinion due to his diagnosed mental status self harm my presence that if left untreated that he reports a danger to himself and possibly others. Patient was seen screen in the ED urine toxicology negative blood alcohol level negative. Of interest patient was hospitalized here for 10 days being discharged 07/15/2018 to that facility. Behaviors then are similar to the behaviors he is presenting with now. At this time patient sitting quietly on 2700 unit day room. He is alert though diffusely confused in all 4 spheres speaking nonsensical. He is vague about suicidality and vague about voices or visions. At this time patient does meet criteria for further inpatient psychiatric hospitalization under the Williamson act I will do first opinion request second opinion. I feel he does not have capacity thus I will ask for healthcare surrogate and guardian advocate. His daughter did play that role with the last hospitalization we will attempt to reach her to get permission to treat this man again. Hopefully we will be able to stabilize him further and attempt to find another appropriate placement for him Tobacco Use In Past 30 Days: No How Often Do You Have a Drink Containing Alcohol: Never Hospital Course: Patient's hospital course was uneventful, the dementia, cognitive issues stabilized. While he at times was somewhat irritable he was redirectable. His "sundowning" softened with the compliance with his medication. He was no significant behavioral problem. We did meet with patient's daughter and son-in- law today they are excited about taking him home with them today to spend the Earle holidays with his family. They have made a commitment to return him to his [facility] placement at [facility] on 07/24. Thus patient will be discharged today to his family. He will stay with them continue his medications to be given 1 month Rx of his medications. Family to transfer him back to his MISTY after the holiday. Family is also advised that if his behavior became out of control to the point he became a danger I could always have him brought back to our ED for further screening by our psychiatric screamers - Discharge Discharge Date: 07/22/18 - Discharge Diagnosis (1) Dementia in other diseases classified elsewhere with behavioral disturbance Diagnosis: Principal Code(s): F02.81 - Dementia in other diseases classified elsewhere with behavioral disturbance Status: Acute (2) Alzheimer's disease with late onset Diagnosis: Principal Code(s): G30.1 - Alzheimer's disease with late onset; F02.80 - Dementia in other diseases classified elsewhere without behavioral disturbance Status: Acute Discharge Disposition: Home (To go home with his daughter and son-in-law) - Discharge Instructions Discharge Diet: Diabetic Diet (1800-calorie) Activities You Can Perform: Regular- No Restrictions - Discharge Time > 30 minutes Mental Status Examination Appearance: Appropriate Consciousness: Alert Orientation: Person (Vaguely) Motor Activity: Other (Somewhat shuffling) Speech: Hesitant, Other (Markedly disorganized) Language: Other (Markedly disorganized) Fund of Knowledge: Poor Attention and Concentration: Easily distracted Memory: Impaired Mood: Anxious, Other (Restricted to irritable) Affect: Other (Slight increased range and intensity) Thought Process & Associations: Disorganized Thought Content: Other (Disorganized) Hallucination Type: None Delusion Type: None Suicidal Ideation: No Suicidal Plan: No Suicidal Intention: No Homicidal Ideation: No Homicidal Plan: No Homicidal Intention: No Insight: Poor Judgment: Poor Discharge/Advance Care Plan - Results Vital Signs: Last Vital Signs Temp 98.0 F 07/22/18 06:00 Pulse 76 07/22/18 06:00 Resp 18 07/22/18 06:00 BP 164/76 H 07/22/18 06:00 Pulse Ox 94 L 07/22/18 06:00 Lab Results: Abnormal Lab Results 07/21/18 07/21/18 07/21/18 11:42 16:12 20:47 POC Glucose 125 H 149 H 265 H 07/22/18 07/22/18 07:12 11:10 POC Glucose 82 118 H Laboratory Results TSH 2.940 uIU/mL (0.358-3.740) 07/17/18 16:25 Urine Culture Comments Culture not ind 07/20/18 03:30 Summary of Procedures: None done Pending Results: None - Medications Number of antipsychotic medications at discharge: 1 - Discharge Care Plan Goals to Promote Your Health: * To prevent worsening of your condition and complications * To maintain your health at the optimal level Directions to Meet Your Goals: Take your medications as prescribed Follow your dietary instruction Follow activity as directed Keep your appointments as scheduled Take your immunizations and boosters as scheduled If your symptoms worsen call your PCP, if no PCP go to Urgent Care Center or Emergency Room For 19/02 questions related to your inpatient stay or results of tests pending at discharge, please contact Dr. Vipin Hernandez MD at Smoking is Dangerous to Your Health. Avoid second hand smoking (2) Alzheimer's disease with late onset Qualifiers: Dementia behavioral disturbance: with behavioral disturbance Qualified Code(s ): G30.1 - Alzheimer's disease with late onset; F02.81 - Dementia in other diseases classified elsewhere with behavioral disturbance (2) Alzheimer's disease with late onset Qualifiers: Dementia behavioral disturbance: with behavioral disturbance Qualified Code(s ): G30.1 - Alzheimer's disease with late onset; F02.81 - Dementia in other diseases classified elsewhere with behavioral disturbance
== END 2018-07-22 13:10 | disposition home or self-care (01) ==
LOC: NEPE 14:44 → NEDA 23:48 → H270 07-18 00:37 → H250 07-18 13:54 → H4EA 07-19 10:27
PROVIDERS: ADMIT Psychiatry & Neurology Psychiatry; ATTEND Psychiatry & Neurology Psychiatry
DX: E78.5 Hyperlipidemia, unspecified; Z79.4 Long term (current) use of insulin; F02.81 Dementia in other diseases classified elsewhere, unspecified severity, with behavioral disturbance; I10 Essential (primary) hypertension; G30.9 Alzheimer's disease, unspecified; E11.9 Type 2 diabetes mellitus without complications; Z79.899 Other long term (current) drug therapy